=== PATIENT | male | born 1950 | race American Indian/Alaskan Native ===

== ENCOUNTER 2017-11-08 11:39 | Emergency (ER) | payer BC ==
--- NOTE | 2017-11-08 12:37 | ED PDOC ---
Arrival/HPI - General Chief Complaint: Trauma Time Seen by Provider: 11/08/17 12:00 Historian: Patient - History of Present Illness Narrative History of Present Illness (Text): 11/08/17 12:33 67-year-old male presents today with left hip and left posterior thigh pain status post fall yesterday. Patient states he slipped and fell landing on the left side injuring the left hip and left thigh. Patient states he took 2 Advil yesterday without improvement. Patient states he is having difficulty with ambulation rates the pain as an 8 out of 10. Patient denies back pain. Denies numbness or tingling in the extremity. Patient describes the pain as a tightness in the hip and thigh. Patient states the pain is worse if he tries to extend his leg, rotate the hip or ambulate. Patient states he was trying to wait to see his primary care physician today but the pain was too severe. pt denies head injury. No LOC. denies headache dizziness or weakness. no other complaints. Past Medical History - Provider Review Nursing Documentation Reviewed: Yes - Travel History Have you recently traveled outside [place] w/in the past 3 mons?: No - Tetanus Immunization Tetanus Immunization: Unknown - Cardiac Hx Cardiac Disorders: Yes Hx Hypertension: Yes - Pulmonary Hx Respiratory Disorders: No - Neurological Hx Neurological Disorder: No - HEENT Hx HEENT Disorder: No - Renal Hx Renal Disorder: No - Endocrine/Metabolic Hx Endocrine Disorders: No - Hematological/Oncological Hx Blood Disorders: No - Integumentary Hx Dermatological Disorder: No - Musculoskeletal/Rheumatological Hx Musculoskeletal Disorders: Yes Hx Arthritis: Yes Hx Falls: Yes - Gastrointestinal Hx Gastrointestinal Disorders: No - Genitourinary/Gynecological Hx Genitourinary Disorders: Yes Hx Prostate Problems: Yes (prostate enlargement) - Psychiatric Hx Psychophysiologic Disorder: No Hx Substance Use: No Family/Social History - Physician Review Nursing Documentation Reviewed: Yes Family/Social History: Unknown Family HX Smoking Status: Never Smoked Hx Alcohol Use: Yes Hx Substance Use: No Allergies/Home Meds Allergies/Adverse Reactions: Allergies No Known Allergies Allergy (Verified 11/08/17 12:15) Review of Systems - Review of Systems Constitutional: absent: Fatigue, Fevers Respiratory: absent: SOB, Cough Cardiovascular: absent: Chest Pain, Palpitations Gastrointestinal: absent: Abdominal Pain, Nausea, Vomiting Genitourinary Male: absent: Dysuria Musculoskeletal: Arthralgias. absent: Back Pain, Neck Pain Skin: absent: Rash, Pruritis Neurological: absent: Headache, Dizziness Psychiatric: absent: Anxiety, Depression Physical Exam Vital Signs Reviewed: Yes Vital Signs Temp Pulse Resp BP Pulse Ox 11/08/17 15:22 54 L 18 130/83 96 11/08/17 12:27 98.2 F 66 18 127/87 95 Temperature: Afebrile Blood Pressure: Normal Pulse: Regular Respiratory Rate: Normal Appearance: Positive for: Well-Appearing, Non-Toxic, Comfortable Pain Distress: None Mental Status: Positive for: Alert and Oriented X 3 - Systems Exam Head: Present: Atraumatic Neck: Present: Normal Range of Motion Respiratory/Chest: Present: Clear to Auscultation Cardiovascular: Present: Regular Rate and Rhythm Abdomen: No: Tenderness, Rebound, Guarding Upper Extremity: Present: Normal ROM Lower Extremity: Present: NORMAL PULSES, Normal ROM, Tenderness (pelvis stable; left hip; + ttp over lateral and posterior aspect of hip; + ttp over posterior thigh; no edema, no erythema; no ecchymosis; full rom of hip with pain. ), Neurovascularly Intact. No: Swelling, Erythema, Deformity, Temperature Abnormalties, Capillary Refill < 2 s Neurological: Present: GCS=15, Speech Normal Skin: Present: Warm, Dry, Normal Color Psychiatric: Present: Alert, Oriented x 3 Medical Decision Making ED Course and Treatment: 11/08/17 12:53 Patient is nontoxic well-appearing in no distress with stable vital signs. pt c/ o left hip and thigh pain s/p fall yesterday. c/o pain with ambulation. pt given toradol for pain. xray left hip; no fracture as read by radiologist xray left femur; no fracture Patient reassessment; patient is nontoxic well-appearing in no distress with stable vital signs pt ambulating with steady gait WITHOUT use of cane. feeling much better . I discussed all results in depth with the patient advised follow-up with the primary care physician and orthopedist within the next 2 days. I've advised immediate return if symptoms worsen persist or if new concerning symptoms develop Patient verbalizes understanding of discharge instructions and need for immediate followup. all aspects of this case were discussed the attending of record. Impression: Leg pain, hip pain Motrin every 6 hours as needed for pain Flexeril; 1 tablet every 8 hours as needed for muscle spasms; may cause drowsiness. Followup primary care physician within the next 2 days Follow up with the orthopedist within the next 2 days Return if symptoms worsen persist or if new symptoms develop Reassessment Condition: Re-examined, Improved - RAD Interpretation Radiology Orders: 11/08/17 12:25 Femur Left [FEMUR MIN 2 VIEWS LT] [RAD] Stat Hip Left [HIP MIN 2V W/ PELVIS LT] [RAD] Stat - Medication Orders Current Medication Orders: Discontinued Medications Ketorolac Tromethamine (Toradol) 60 mg IM STAT STA Stop: 11/08/17 12:26 Last Admin: 11/08/17 12:32 Dose: 60 mg MAR Pain Assessment Document 11/08/17 12:32 GMD (Rec: 11/08/17 12:32 GMD [id number]) Pain Reassessment Is this a pain reassessment? No Presence of Pain Presence of Pain Yes Location Left, Right or Bilateral Left Pain Location Body Site Leg IM Administration Charges Document 11/08/17 12:32 GMD (Rec: 11/08/17 12:32 GMD [id number]) Injection Site MAR Injection Site Left Deltoid Charges for Administration # of IM Administrations 1 Disposition/Present on Arrival - Present on Arrival Any Indicators Present on Arrival: No History of DVT/PE: No History of Uncontrolled Diabetes: No Urinary Catheter: No History of Decub. Ulcer: No History Surgical Site Infection Following: None - Disposition Have Diagnosis and Disposition been Completed?: Yes Diagnosis: Leg pain, Hip pain Disposition: HOME/ ROUTINE Disposition Time: 15:13 Patient Plan: Discharge Condition: GOOD Discharge Instructions (ExitCare): Muscle and Bone Pain (DC) Additional Instructions: Motrin every 6 hours as needed for pain Flexeril; 1 tablet ever 8 hours as needed for muscle spasms; May cause drowsiness Followup primary care physician within the next 2 days Follow up with the orthopedist within the next 2 days Return if symptoms worsen persist or if new symptoms develop Prescriptions: Cyclobenzaprine [Cyclobenzaprine HCl] 10 mg PO Q8 #10 tab Ibuprofen [Motrin] 600 mg PO Q6H PRN #20 tab PRN Reason: pain/fever reduction Referrals: Jeff Carroll [Primary Care Provider] - Follow up with primary Bijan Carty MD [Staff Provider] - Follow up with primary Forms: [facility] ([employer] [place]), WORK NOTE
[2017-11-08 12:38] VITALS: RESP 18; TEMP 98.2
--- NOTE | 2017-11-08 14:53 | RAD ---
PROCEDURE: Left Hip X-ray Radiographs. HISTORY: Hip pain COMPARISON: None. FINDINGS: BONES: The pelvic ring is intact. There is no acute displaced fracture or bone destruction. Bone alignment and mineralization are. JOINTS: There is mild degenerative osteoarthrosis in the hip joints. The sacroiliac joints are normal. There is mild osteitis pubis. SOFT TISSUES: Normal. OTHER FINDINGS: None. IMPRESSION: No acute fracture or dislocation. Mild degenerative osteoarthrosis in the hip joints. Mild osteitis pubis.
[2017-11-08 15:22] VITALS: BP 130/83; PULSE 54; O2SAT 96
--- NOTE | 2017-11-08 16:14 | RAD ---
PROCEDURE: Left Femur Radiographs. HISTORY: Fall COMPARISON: None. TECHNIQUE: AP and Lateral Radiographs of the left femur. FINDINGS: FEMUR: Bone alignment and mineralization are normal. There is no acute displaced fracture or bone destruction. SOFT TISSUES: Normal. OTHER FINDINGS: None. IMPRESSION: No acute fracture or bone destruction in the visualized femur.
== END 2017-11-08 15:25 | disposition home or self-care (01) ==
LOC: ED 11:39
DX: M79.605 Pain in left leg (principal); M25.552 Pain in left hip; I10 Essential (primary) hypertension
CPT/HCPCS: 73502; 73552; 96372; 99285; J1885